=== PATIENT | male | born 1960 | race African-American/Black ===

== ENCOUNTER → 2024-04-03 08:44 | Outpatient (BNVA) | payer OTHER, MEDICAID, SELFPAY | PROVIDERS: Visit Provider Nurse Practitioner Family ==

== ENCOUNTER 2024-09-05 12:21 | Outpatient (AMB) | payer OTHER, SELFPAY ==
--- NOTE | 2024-09-05 12:24 | A.OFFPC_ITS ---
Vital Signs 09/05/24 12:32 09/05/24 13:25 Height 5 ft 8.5 in Weight 200 lb BMI 30.0 BP 165/90 H 136/100 H Blood Pressure Location Rt brachial Rt brachial Position Sitting Sitting Respiration 16 Pulse 74 76 Pulse Source Pulse Oximeter Auscultation Temp 97.8 F Temp Source Oral Pulse Oximetry (%) 98 Oxygen Delivery Method Room Air Intake Visit Reasons: est care Intake Note: patient here as new patient to [facility] Supervisor [employer] Required: No Accompanied by: Other Relationship Allergies No Known Allergies Allergy (Verified 09/05/24 12:50) Medication List - Last Reviewed 09/05/24 by Shruthi Brown MA amlodipine 5 mg PO DAILY ferrous sulfate mg PO DAILY lisinopril 20 mg PO DAILY metformin 500 mg one-half orally 2 times a day; rosuvastatin 30 mg PO DAILY Tobacco use date assessed: 09/05/24 Fall risk assessment: No Falls in past year Last assessed Fall Risk: 09/05/24 Dental Screening Dental Screen Date: 09/05/24 Did you have a dental visit in the last 12 months?: No Did you have a dental problem in the last 6 months where you did not have access to dental care?: No Was dental information given to patient?: Patient has dentist HPI HPI Comments History of Present Illness Details 64-year-old male, accompanied by his car etaker who is also his older cousin, presents to [facility]. He lives with his administration assistant. He admits to taking his medications as prescribed without adverse reactions. [facility] [place] [facility] office visit - 03/2024 CPE/labs - 6 months ago. Record not available. He will request his old record for his PCP to review Acute issue(s) - HTN: He is on amlodipine 5 mg daily a nd lisinopril 20 mg daily - HLD: He is on rosuvastatin 30 mg nehemiah y - Type 2 diabetes: He is on metformin 7 50 mg twice daily. He notes that his last A1c was possibly 6 months ago - Microcytic anemia: He is on ferrous s ulfate 325 mg daily Past Medical History - Type 2 diabetes - Hypertension - Hperlipidemia - Microcytic anemia - Myopia - PTSD and other unknown psychiatric sanket gnoses. He is not currently on psychotropic medications. He was treated by psychiatrist at the [facility]. Psychiatric record not available. He will obtain record for his PCP to review. Surgical History - None Family History - Mom: lung cancer ( of lung cancer. she was a smoker) Social History - Nonsmoker. Does not vape. Does not dri nk alcohol. Denies recreational drug use - Has been making healthy dietary choice s; however, he consumes significant amount of salt. Active but does not exercise. Generally sleep well Health maintenance - Last eye exam was over a year ago. Re ferred to Ophthalmology for routine eye care - Last dental visit was over 40 years ag o; encouraged to schedule an appointment with his dentist for routine dental care. - Last tetanus vaccine was more than 10 years ago; will receive tetanus vaccine at next visit - He notes that his up-to-date on the fl u vaccine - Last colonoscopy was 2022 or 2023 with [facility] or [facility] : He will research his record and notified his PCP to update as needed [facility] Medical History (Updated 09/05/24 @ 14:16 by Christine Ferguson CNP) Acute posttraumatic stress disorder following combat Memory loss Diabetes High cholesterol Family History (Updated 09/05/24 @ 12:58 by Shruthi Brown MA) Mother Lung cancer Social History Housing: House Patient Tobacco Use Status: Never used Tobacco e-Cigarette/Vaping Use: Never Used service: Yes Current occupational exposures/hazards: No Cognitive needs: No Hearing needs: No Vision needs: Yes Questionnaire PHQ-9 Over the last 2 weeks, how often have you been bothered by any of the following problems? 1. Little interest or pleasure in doing things: not at all 2. Feeling down, depressed, or hopeless: not at all 3. Trouble falling or staying asleep, or sleeping too much: not at all 4. Feeling tired or having little energy: not at all 5. Poor appetite or overeating: not at all 6. Feeling bad about yourself - or that you are a failure or have let yourself or your family down: not at all 7. Trouble concentrating on things, such as reading the newspaper or watching television: not at all 8. Moving or speaking so slowly that other people could have noticed. Or the opposite - being so fidgety or restless that you have been moving around a lot more than usual: not at all 9. Thoughts that you would be better off or of hurting yourself in some way: not at all Total score: 0 Depression Screening Interpretation: Negative Depression Screening Done: Yes 66319 - PHQ-9 Billing: Yes Source: Developed by Drs. Brian Paez, Favian Velasco and colleagues, with an educational [place] from [employer]. Thrive Questionnaire Date Thrive assessed: 09/05/24 I am a: Parent/Caregiver What is your living situation today?: I have a steady place to live Within the past 12 months, did the food you bought not last and you didn't have the money to get more?: Never true Within the past 12 months, did you worry whether your food would run out before you got money to buy more?: Never true Do you have trouble paying for medicines?: No Do you have trouble getting transportation to medical appointments?: No Do you have trouble paying your heating and electricity bill?: No Do you have trouble taking care of your child, family member or friend?: No Do you have trouble with day-to-day activities such as bathing, preparing meals, shopping, managing finances, etc.?: No Are you currently unemployed and looking for a job?: No Are you interested in more education?: No Please select the resources that you would like help with: None Currently or been in a relationship where the following occur: No concerns reported THRIVE Score: 0 AUDIT C Alcohol Use Questionnaire (AUDIT-C) 1. How often do you have a drink containing alcohol?: Never Total Score: 0 SARI-7 AMB Questionnaire SARI-7 Date SARI - 7 assessed: 09/05/24 Feeling nervous, anxious, or on edge: 0 = Not at all Not being able to stop or control worryin = Not at all Worrying too much about different things: 0 = Not at all Trouble relaxin = Not at all Being so restless that it is hard to sit still: 0 = Not at all Becoming easily annoyed or irritable: 0 = Not at all Feeling afraid as if something awful might happen: 0 = Not at all Total SARI-7 score (0-4 normal; 5-9 mild; 10-14 moderate; 15-21 severe): 0 Source: Developed by Letitia Garcia Kurt Kroenke and colleagues, with an educational alex[place]ria from [employer]. SARI-7 Assessment Billing SARI-7 Assessment Tool: SARI-7 Assessment 25556 Review of Systems Const Details: Const Denies chills, Denies fatigue, Denies fever(s), Denies headache(s) and Denies weakness ENT Denies dizziness and Denies headache(s) Card Denies chest pain, Denies lightheadedness, Denies dyspnea and Denies other (Palpitations) Resp Denies cough, Denies dyspnea, Denies wheezing and Denies other ( shortness of breath) GI Denies abdominal pain, Denies melena, Denies hematochezia, Denies change in bowel habits, Denies dyspepsia and Denies nausea Denies hematuria and Denies dysuria Musc Denies abnormal gait, Denies myalgias, Denies arthralgias, Denies numbness and Denies tingling Skin/Breast Denies rash, Denies unusual bruising and Denies wounds Neuro Denies abnormal gait, Denies dizziness, Denies headache(s), Denies memory loss, Denies numbness, Denies Sensory deficit (Neuro), Denies tingling and Denies weakness Psych Denies anxiety, Denies depression, Denies memory loss Endo Denies cold intolerance, Denies fatigue, Denies heat intolerance, Denies polydipsia and Denies polyuria Aller/Immun Denies wheezing Physical exam (Primary Care) Vital Signs: Last Vital Signs Temp 97.8 F 09/05/24 12:32 Pulse 76 09/05/24 13:25 Resp 16 09/05/24 12:32 BP 136/100 H 09/05/24 13:25 Pulse Ox 98 09/05/24 12:32 Oxygen Delivery Method Room Air 09/05/24 12:32 BMI result Body Mass Index 30.0 Tobacco/Smoking Status: Tobacco use Status Tobacco use date assessed 09/05/24 09/05/24 12:40 Patient Tobacco Use Status Never used Tobacco 09/05/24 12:40 e-Cigarette/Vaping Use Never Used 09/05/24 12:40 PHQ-9: PHQ-9 Score PHQ-9: Total score 0 09/05/24 12:54 Depression Screening Interpretation: Negative Thrive Assessment: Date of Thrive Assessment Date Thrive assessed 03/07/25 03/07/25 12:40 Currently or been in a relationship where the following occur: No concerns reported Const Other: General: no acute distress and well developed Nutritional Appearance: well nourished Orientation/consciousness: patient oriented x3 [facility] Head: Yes normocephalic and Yes atraumatic Eyes General: appearance normal, both eyes and all related structures Pupils: Equal, round and reactive pupils present EOM: EOMs intact bilaterally Resp Effort & Inspection: normal respiratory effort Auscultation: clear to auscultation bilaterally Cardio Rate: regular rate Rhythm: regular rhythm Heart sounds: S1 normal heart sound present, S2 normal heart sound present, no gallops, no murmurs and no rubs GI Palpation (GI): No Abdominal aortic bruit present, Soft to palpation, nontender, No hepatosplenomegaly present and No Rebound tenderness present Auscultation: normal bowel sounds General: Yes no CVA tenderness Back/Spine/Pelvis Back: no CVA tenderness Cervical Spine: cervical ROM normal and No Cervical spine tenderness Thoracic/Lumbar Spine: thoraco-lumbar ROM normal, No pain with thoraco-lumbar ROM, No thoracic spinal tenderness and No lumbar spinal tenderness Extrem General: Yes normal to inspection, No edema and No calf tenderness Skin General: warm and dry. Normal skin color. Normal skin turgor. Very dry skin of the palms of both hands. Lesions: no lesions Rashes: no rashes Trauma: no lacerations or abrasions Wounds: no wounds Nails: Dark-brown, thickened nails of the left hand in both feet, consistent with onychomycosis Neuro General: patient oriented x3, gait normal and no focal neuro deficit Cranial nerves: Yes Equal, round and reactive pupils present Cognition (Neuro): normal cognition Gait exam (Neuro): Normal gait present Sensory Exam: No Sensory deficit (Neuro) Psych Appearance: grossly normal Affect: normal affect Attitude: cooperative Thought process: Normal thought process present Results AMB Hemoglobin A1c AMB Hemoglobin A1c 6.6 % Last Edit by Shruthi Brown MA on 09/05/24 13:47 Results Reviewed Results Reviewed: Laboratory Last Values Hgb A1c (Clinic) 6.6 % (4.0-6.0) H 09/05/24 12:57 Coding Level of Care Code New Pt Level 5 (80492) New Pt Prev Care 40-64y(69045) Diagnoses Hypertension I10 Type 2 diabetes mellitus E11.9 Hyperlipidemia E78.5 PTSD (post-traumatic stress disorder) F43.10 Onychomycosis B35.1 Dry skin L85.3 Myopia H52.10 Microcytic anemia D50.9 Laboratory tests ordered as part of a complete physical exam (CPE) Z00.00 Additional Codes SARI-7 Assessment Billing - SARI-7 Assessment Tool: SARI-7 Assessment 94806 ([id number]) PHQ-9 - 42856 - PHQ-9 Billing: Yes ([id number]) Comment 50 minute with patient Assessment & Plan Assessment & Plan (1) Hypertension: Code(s): I10 - Essential (primary) hypertension Category: Medical Plan: Resting blood pressure is 136/100, above goal of less than 130/80. He has been consuming significant amount of salt. Low-sodium diet and routine exercise encouraged. Follow-up in 2 weeks or sooner with symptoms or concerns. (2) Type 2 diabetes mellitus: Code(s): E11.9 - Type 2 diabetes mellitus without complications Category: Medical Plan: A1c today 6.6%, within goal of less than 7.0%. Continue current treatment regimen. ADA diet and routine exercise encouraged. Will recheck A1c in 3 months. Verbalized understanding and agreed with treatment plan. (3) Hyperlipidemia: Code(s): E78.5 - Hyperlipidemia, unspecified Category: Medical Plan: Continue current treatment regimen. Advised to limit foods high in saturated fat and avoid foods high in trans fat. Routine exercise encouraged. Will check lipid panel and make changes as needed. (4) PTSD (post-traumatic stress disorder): Code(s): F43.10 - Post-traumatic stress disorder, unspecified Category: Medical Plan: PTSD and other unknown psychiatric diagnoses. He is not on psychotropic medications. He was treated by psychiatrist at the [facility]. Psychiatric record not currently available. He will obtain record for his PCP to review. No anxiety or depressive symptoms. Routine exercise encouraged. Follow-up with symptoms or concerns. Verbalized understanding and agreed with the plan. (5) Onychomycosis: Code(s): B35.1 - Tinea unguium Category: Medical Plan: Dark-brown, thickened nails of the left hand in both feet, consistent with onychomycosis. He wants to treat fungal infection of his fingernails and toenails. Will check liver function and will treat with terbinafine if normal. Verbalized understanding and agreed with the plan. (6) Dry skin: Code(s): L85.3 - Xerosis cutis Category: Medical Plan: Very dry and cracked skin to the palm of both hands. He notes that the dry and cracked skin of his palms resulted from painting; he does a lot of indoor painting. Encouraged to apply moisturizing lotion such as Cetaphil or Lubriderm to dry and cracked skin of his hands as needed. Follow-up as needed. May referred to dermatology. Verbalized understanding and agreed with the plan. (7) Myopia: Code(s): H52.10 - Myopia, unspecified eye Category: Medical Plan: Last eye exam was over a year ago. Referred to Ophthalmology for routine eye care. (8) Microcytic anemia: Code(s): D50.9 - Iron deficiency anemia, unspecified Category: Medical Plan: On ferrous sulfate 325 mg daily. Will check iron studies and vitamin B12/folate level and make changes as needed. (9) Laboratory tests ordered as part of a complete physical exam (CPE): Code(s): Z00.00 - Encounter for general adult medical examination without abnormal findings Category: Medical Plan: Fasting labs ordered as part of a complete physical exam. Advised to fast for at least 10 hours before getting labs drawn. May drink water Verbalized understanding and agreed with treatment plan. Plan Total time spent caring for the patient today was 75 minutes. This includes time spent before the visit reviewing the chart, time spent during the visit, and time spent after the visit on documentation, reviewing laboratory results, diagnostic imaging, medications, performing a medically necessary evaluation, counseling on diagnoses, care coordination, ordering appropriate tests, ordering appropriate medications, review of tests performed by other providers, reporting test results with the patient, communication with other healthcare providers. Orders: Orders Lipid Panel Today Z00.00 - Encounter for general adult medical examination without abnormal findings Microalbumin, Random (w Creat) Today Z00.00 - Encounter for general adult medical examination without abnormal findings PSA, Ultra Sensitive Today Z00.00 - Encounter for general adult medical examination without abnormal findings UA CC w/rflx Micro + Cult Today Z00.00 - Encounter for general adult medical examination without abnormal findings IRON PROFILE Today D50.9 - Iron deficiency anemia, unspecified Ferritin Today D50.9 - Iron deficiency anemia, unspecified AMB Hemoglobin A1c Today Z13.9 - Encounter for screening, unspecified Complete Blood Count Auto Diff Today Z00.00 - Encounter for general adult medical examination without abnormal findings Comprehensive Anthony. Panel Fast Today Z00.00 - Encounter for general adult medical examination without abnormal findings TSH reflex Free T4 Today Z00.00 - Encounter for general adult medical examination without abnormal findings Vitamin D 25-OH Total Today Z00.00 - Encounter for general adult medical examination without abnormal findings Vitamin B12 and Folate Today D50.9 - Iron deficiency anemia, unspecified Referrals Ophthalmology Referral H52.10 - Myopia, unspecified eye
[2024-09-05 12:32] VITALS: BP 165/90; PULSE 74; RESP 16; TEMP 36.6; O2SAT 98
[2024-09-05 13:25] VITALS: BP 136/100; PULSE 76
--- OUTSIDE RECORDS SUMMARY | 2024-09-05 14:04 | XMS_ITS | Continuity of Care Document ---
Author Name [facility] Organization [facility] Care Team Providers Care Tree Surgeon Helper Name Role Phone [facility] Unavailable Unavailable Problems Combined list of problems from Department of Defense and Veterans Affairs facilities. It does not include entries that were removed or entered in error. Problem Status Onset Date Problem Type Date of Resolution Comments Source Anaemia Active Condition Jun 01 Entered By: MIHIR STUBBS Comment: Microcytic Anemia [place] History of colonoscopy Active Condition Jun 07, 2017 Entered By: MIHIR STUBBS Comment: Screen Colonoscopy JUN 17; at [facility]; Dr. Monae 2016 Entered By: MIHIR STUBBS Comment: +Benign Polyposis; +Int. Hemorrhoids;Ia 2021 Entered By: MIHIR STUBBS Comment: Last Screen Colonoscopy 2020: No CRC; repeat? [place] Hypertension Active Condition [facility] Lipidemia Active Condition Jun 01 Entered By: MIHIR STUBBS Comment: LDL WNL APR 23: Re-Start Statin Because is Diabetic [place] Psychotic disorder Active Condition Dec 30, 2018 Entered By: ANILA GARCIA Comment: reviewedApr 05, 2020 Entered By: ANILA GARCIA Comment: reviewedOct 2020 Entered By: ANILA GARCIA Comment: [facility] Type 2 diabetes mellitus Active Condition Sep 02, 2021 Entered By: MIHIR STUBBS Comment: No AUG 23 (eye exam at [place]) [place] Diagnosis: ICD-10-CM E11.9 Type 2 diabetes mellitus without complications Active Diagnosis [place] Diagnosis: ICD-10-CM I10 Essential (primary) hypertension Active Diagnosis [place] Medications Combined list of outpatient medications from Department of Defense and Veterans Affairs facilities.Medications provided include 1) outpatient medications from the last 15 months, and 2) patient-reported medications. Medication Details Route Status Patient Instructions Prescription Expires Prescription Number Last Dispense Date Ordering Provider Order Date Order Qty Source AMLODIPINE BESYLATE 5MG TAB TAKE ONE TABLET BY MOUTH ONCE DAILY FOR HIGH BLOOD PRESSURE FOR BLOOD PRESSURE /HEART, DO NOT TAKE WITH GRAPEFRU IT JUICE ORAL ACTIVE 04/12/2025 [id number] LUIS STUBBS 2023 90 [place] AMLODIPINE BESYLATE 5MG TAB TAKE ONE TABLET BY MOUTH ONCE DAILY FOR HIGH BLOOD PRESSURE FOR BLOOD PRESSURE /HEART, DO NOT TAKE WITH GRAPEFRU IT JUICE ORAL DISCONT INUED 10/15/2024 [id number] LUIS STUBBS 2023 90 [place] CARBAMIDE PEROXIDE 6.5%/GLYCER IN SOLN,OTIC INSTILL 5 DROPS INTO THE AFFECTED EAR(S) ONCE DAILY NEEDED FOR EAR WAX BLOCKAGE AURICU LAR (OTIC) ACTIVE 10/15/2024 [id number] LUIS STUBBS 2023 15 [place] CYCLOBENZAP RINE HCL 10MG TAB TAKE ONE TABLET BY MOUTH TWICE DAILY FOR MUSCLE SPASM ORAL ACTIVE 04/12/2025 [id number] 5 LUIS STUBBS 2023 40 [place] CYCLOBENZAP RINE HCL 10MG TAB TAKE ONE TABLET BY MOUTH TWICE DAILY FOR MUSCLE SPASM ORAL DISCONT INUED 10/15/2024 [id number] LUIS STUBBS 2023 40 [place] DOCUSATE NA 100MG CAP TAKE ONE CAPSULE BY MOUTH ONCE DAILY TO SOFTEN STOOL WITH YOUR IRON PILL ORAL ACTIVE 04/12/2025 [id number] LUIS STUBBS 2023 100 [place] DOCUSATE NA 100MG CAP TAKE ONE CAPSULE BY MOUTH ONCE DAILY TO SOFTEN STOOL WITH YOUR IRON PILL ORAL DISCONT INUED 10/15/2024 [id number] LUIS STUBBS 2023 100 [place] FERROUS SO4 325MG TAB TAKE ONE TABLET BY MOUTH ONCE DAILY TO SUPPLEME NT IRON ORAL ACTIVE 04/12/2025 [id number] 4 LUIS STUBBS 2023 100 [place] FERROUS SO4 325MG TAB TAKE ONE TABLET BY MOUTH ONCE DAILY TO SUPPLEME NT IRON ORAL DISCONT INUED 10/15/2024 [id number] 4 LUIS STUBBS 2023 100 [place] HYDROPHILIC (EQV EUCERIN) CREAM,TOP APPLY A SMALL AMOUNT TOPICALL Y ONCE DAILY TOPICA L ACTIVE 04/12/2025 [id number] STUBBSLUIS POSADA 2023 454 [place] LISINOPRIL 20MG TAB TAKE ONE TABLET BY MOUTH ONCE DAILY TO CONTROL BLOOD PRESSURE ORAL ACTIVE 04/12/2025 [id number] LUIS STUBBS ALBINO 2023 90 [place] LISINOPRIL 20MG TAB TAKE ONE TABLET BY MOUTH ONCE DAILY TO CONTROL BLOOD PRESSURE ORAL DISCONT INUED 10/15/2024 [id number] STUBBSLUIS MAZA 2023 90 [place] METFORMIN HCL 500MG TAB TAKE ONE-HALF TABLET BY MOUTH TWICE DAILY ORAL SUSPEND ED 04/12/2025 [id number] STUBBSLUIS MAZA [facility]23 [facility] METFORMIN HCL 500MG TAB TAKE ONE-HALF TABLET BY MOUTH TWICE DAILY ORAL DISCONT INUED 10/15/2024 [id number] STUBBSLUIS ALBINO 2023 90 [place] ROSUVASTATI N CA 20MG TAB TAKE ONE-HALF TABLET BY MOUTH ONCE DAILY FOR CHOLESTE ROL ORAL ACTIVE 04/12/2025 [id number] 5 STUBBSLUIS MAZA 2023 45 [place] ROSUVASTATI N CA 20MG TAB TAKE ONE-HALF TABLET BY MOUTH ONCE DAILY FOR CHOLESTE ROL ORAL DISCONT INUED 10/15/2024 [id number] STUBBSLUIS MAZA 2023 45 [place] Immunizations Combined list of available immunizations from the Department of Defense and Veterans Affairs facilities. Immunization Series Date Given Administered By Site Reaction Lot Number CVX Code Drug Ocean Forwarder Status Comments Source INFLUENZA, SPLIT VIRUS, TRIVALENT, PF 2023 MIKAEL SERRANO RIGHT DELTO ID [id number] 140 complet ed [facility] INFLUENZA, INJECTABLE, QUADRIVALENT, PRESERVATIVE FREE 2022 SESAR DEGROOT RIGHT DELTO ID [id number] A 150 complet ed [place] TDAP 2021 115 complet ed [place] INFLUENZA, UNSPECIFIED FORMULATION 2020 88 complet ed [facility] COVID-19 (MODERNA), MRNA, LNP-S, PF, 100 MCG/0.5 ML DOSE 2 2020 207 complet ed MOD; [id number]; 1 [place] COVID-19 (MODERNA), MRNA, LNP-S, PF, 100 MCG/0.5 ML DOSE 1 2020 207 complet ed MOD; [id number]; 1 [place] PNEUMOCOCCAL POLYSACCHARID E PPV23 2018 33 complet ed [place] INFLUENZA, INJECTABLE, QUADRIVALENT, PRESERVATIVE FREE 2018 150 complet ed Site: Left Deltoid [place] INFLUENZA, SEASONAL, INJECTABLE 2016 141 complet ed Site: Right Deltoid [place] FLU,3 YRS (HISTORICAL) 2015 88 complet ed Site: Right Deltoid [place] Results Combined list of recent chemistry, hematology and other laboratory results from Department of Defense and Veterans Affairs, ranging from 15 months to all on record, depending upon the facility. Order Name Results Value Reference Range Date Interpretation Specimen Comments Source CALCIUM CALCIUM [MASS/VOLUM E] IN SERUM OR PLASMA 9.0 mg/dL 8.5 - 10.2 04/11 Specimen Type: SERUM No comment entered. Ordering Provider: MIHIR STUBBS Report Released Date/Time: Oct 15, 2023 08:47 AM Reporting Lab: [facility] [employer] [facility] [address] [address] Performing Lab: [facility] [employer] [facility] [address] [address] [place] URIC ACID URATE [MASS/VOLUM E] IN SERUM OR PLASMA 5.7 mg/dL 3.5 - 7.2 04/11 Specimen Type: SERUM No comment entered. Ordering Provider: MIHIR STUBBS Report Released Date/Time: Oct 15, 2023 08:47 AM Reporting Lab: [facility] [employer] [facility] [address] [address] Performing Lab: [facility] [place] [facility] [address] [address] [place] LIVER FUNCTION PROTEIN [MASS/VOLUM E] IN SERUM OR PLASMA 6.9 g/dL 6.0 - 8.3 04/11 Specimen Type: SERUM No comment entered. Ordering Provider: MIHIR STUBBS Report Released Date/Time: Oct 15, 2023 08:47 AM Reporting Lab: [facility] [place] [facility] [address] [address] Performing Lab: [facility] [place] [facility] [address] [address] [place] LIVER FUNCTION ALBUMIN [MASS/VOLUM E] IN SERUM OR PLASMA 3.7 g/dL 3.5 - 5.0 04/11 Specimen Type: SERUM No comment entered. Ordering Provider: MIHIR STUBBS Report Released Date/Time: Oct 15, 2023 08:47 AM Reporting Lab: [facility] [place] [facility] [address] [address] Performing Lab: [facility] [place] [facility] [address] [address] [place] LIVER FUNCTION ALKALINE PHOSPHATASE [ENZYMATIC ACTIVITY/VO LUME] IN SERUM OR PLASMA 65 U/L 40 - 150 04/11 Specimen Type: SERUM No comment entered. Ordering Provider: MIHIR STUBBS Report Released Date/Time: Oct 15, 2023 08:47 AM Reporting Lab: [facility] [place] [facility] [address] [address] Performing Lab: [facility] [place] [facility] [address] [address] [place] LIVER FUNCTION ASPARTATE AMINOTRANSF ERASE [ENZYMATIC ACTIVITY/VO LUME] IN SERUM OR PLASMA 15 U/L 5 - 34 04/11 Specimen Type: SERUM No comment entered. Ordering Provider: MIHIR STUBBS Report Released Date/Time: Oct 15, 2023 08:47 AM Reporting Lab: [facility] [place] [facility] [address] [address] Performing Lab: [facility] [address] [address] [place] LIVER FUNCTION ALANINE AMINOTRANSF ERASE [ENZYMATIC ACTIVITY/VO LUME] IN SERUM OR PLASMA 12 U/L 04/11 Specimen Type: SERUM No comment entered. Ordering Provider: MIHIR STUBBS Report Released Date/Time: Oct 15, 2023 08:47 AM Reporting Lab: [facility] [address] [address] Performing Lab: [facility] [address] [address] [place] LIVER FUNCTION BILIRUBIN.T OTAL [MASS/VOLUM E] IN SERUM OR PLASMA 0.3 mg/dL 0.2 - 1.2 04/11 Specimen Type: SERUM No comment entered. Ordering Provider: MIHIR STUBBS Report Released Date/Time: Oct 15, 2023 08:47 AM Reporting Lab: [facility] [address] [address] Performing Lab: [facility] [address] [address] [place] LIPID PANEL FASTING CHOLESTEROL [MASS/VOLUM E] IN SERUM OR PLASMA 161 mg/dL 04/11 Specimen Type: SERUM No comment entered. Ordering Provider: MIHIR STUBBS Report Released Date/Time: Oct 15, 2023 08:47 AM Reporting Lab: [facility] [address] [address] Performing Lab: [facility] [address] [address] [place] LIPID PANEL FASTING TRIGLYCERID E [MASS/VOLUM E] IN SERUM OR PLASMA 65 mg/dL 0 - 150 04/11 Specimen Type: SERUM No comment entered. Ordering Provider: MIHIR STUBBS Report Released Date/Time: Oct 15, 2023 08:47 AM Reporting Lab: [facility] [address] [address] Performing Lab: [facility] [address] [address] [place] LIPID PANEL FASTING CHOLESTEROL IN LDL [MASS/VOLUM E] IN SERUM OR PLASMA BY CALCULATION 85 mg/dL 0 - 129 04/11 Specimen Type: SERUM No comment entered. Ordering Provider: MIHIR STUBBS Report Released Date/Time: Oct 15, 2023 08:47 AM Reporting Lab: [address] [address] Performing Lab: [address] [address] [place] LIPID PANEL FASTING CHOLESTEROL .TOTAL/CHOL ESTEROL IN HDL [MASS RATIO] IN SERUM OR PLASMA 2.6 04/11 Specimen Type: SERUM No comment entered. Ordering Provider: MIHIR STUBBS Report Released Date/Time: Oct 15, 2023 08:47 AM Reporting Lab: [address] [address] Performing Lab: [address] [address] [place] LIPID PANEL FASTING CHOLESTEROL IN HDL [MASS/VOLUM E] IN SERUM OR PLASMA 63 mg/dL 40 - 60 04/11 H Specimen Type: SERUM No comment entered. Ordering Provider: MIHIR STUBBS Report Released Date/Time: Oct 15, 2023 08:47 AM Reporting Lab: [address] [address] Performing Lab: [address] [address] [place] VITAMIN D (25-OH) 25-HYDROXYV ITAMIN D3 [MASS/VOLUM E] IN SERUM OR PLASMA <13ng/ mL 20 - 50 04/11 L Specimen Type: SERUM No comment entered. Ordering Provider: MIHIR STUBBS Report Released Date/Time: Oct 15, 2023 08:47 AM Reporting Lab: [address] [address] Performing Lab: [address] [address] [place] HEMOGLOBI N A1C PANEL HEMOGLOBIN A1C/HEMOGLO BIN.TOTAL IN BLOOD BY HPLC 6.2 4.0 - 5.6 04/11 H Specimen Type: BLOOD Comment: Values obtained from A1C measurement s can vary. For atypical A1C assays, a reported value of 7.0 could actually be between 6.72 and 7.28 if measured by a reference method. A reported value of 9.0 could actually be between 8.73 and 9.27. Ref: http://www. ngsp.org/[place] Pdata.asp Ordering Provider: MIHIR STUBBS Report Released Date/Time: Oct 15, 2023 08:47 AM Reporting Lab: [facility] [place] [address] [address] Performing Lab: [facility] [place] [address] [address] [place] PSA PROSTATE SPECIFIC AG [MASS/VOLUM E] IN SERUM OR PLASMA 0.73 ng/mL 0.00 - 4.00 04/11 Specimen Type: SERUM No comment entered. Ordering Provider: MIHIR STUBBS Report Released Date/Time: Oct 15, 2023 08:47 AM Reporting Lab: [facility] [place] [address] [address] Performing Lab: [facility] [place] [address] [address] [place] FERRITIN FERRITIN [MASS/VOLUM E] IN SERUM OR PLASMA 138 ng/mL 20 - 300 04/11 Specimen Type: SERUM No comment entered. Ordering Provider: MIHIR STUBBS Report Released Date/Time: Oct 15, 2023 08:47 AM Reporting Lab: [facility] [place] [address] [address] Performing Lab: [facility] [place] [address] [address] [place] TSH THYROTROPIN [UNITS/VOLU ME] IN SERUM OR PLASMA 0.88 u[IU]/ mL 0.35 - 5.00 04/11 Specimen Type: SERUM No comment entered. Ordering Provider: MIHIR STUBBS Report Released Date/Time: Oct 15, 2023 08:47 AM Reporting Lab: [facility] [place] [address] [address] Performing Lab: [facility] [place] [facility] [address] [address] [place] MICROALBU MIN CREATININ E RATIO PANEL MICROALBUMI N/CREATININ E [MASS RATIO] IN URINE 6.9 mg/g 0 - 29.9 04/11 Specimen Type: URINE No comment entered. Ordering Provider: MIHIR STUBBS Report Released Date/Time: Oct 15, 2023 08:47 AM Reporting Lab: [facility] [address] [address] Performing Lab: [facility]ITALUSE[address] [address] [place] MICROALBU MIN CREATININ E RATIO PANEL MICROALBUMI N [MASS/VOLUM E] IN URINE 1.3 mg/dL 04/11 Specimen Type: URINE No comment entered. Ordering Provider: MIHIR STUBBS Report Released Date/Time: Oct 15, 2023 08:47 AM Reporting Lab: [facility] [address] [address] Performing Lab: [facility] [address] [place] MICROALBU MIN CREATININ E RATIO PANEL CREATININE [MASS/VOLUM E] IN URINE 188.08 mg/dL 04/11 Specimen Type: URINE No comment entered. Ordering Provider: MIHIR STUBBS Report Released Date/Time: Oct 15, 2023 08:47 AM Reporting Lab: [facility] [address] [address] Performing Lab: [facility] [address] [place] Vital Signs Combined list of inpatient and outpatient Vital Signs from Department of Defense and Veterans Affairs, ranging from 12 months to all on record, depending upon the facility. Vital Sign Value Date Comments Source SYSTOLIC BLOOD PRESSURE 168 04/11/2024 10:03:05 [place] DIASTOLIC BLOOD PRESSURE 105 04/11/2024 10:03:05 [place] PULSE OXIMETRY 100 04/11/2024 10:03:05 Jose Luis [place] WEIGHT 210 04/11/2024 10:03:05 [place] BMI 29 kg/m2 04/11/2024 10:03:05 [place] HEIGHT 72 04/11/2024 10:03:05 [place] TEMPERATURE 98 04/11/2024 10:03:05 [place] PULSE 59 04/11/2024 10:03:05 [place] RESPIRATION 19 04/11[facility]24 [facility]03[facility] SYSTOLIC BLOOD PRESSURE 143 10/15/2023 08:44:06 [place] DIASTOLIC BLOOD PRESSURE 97 10/15/2023 08:44:06 [place] PULSE OXIMETRY 98 10/15/2023 08:44:06 [place] WEIGHT 233 10/15/2023 08:44:06 [place] BMI 34 kg/m2 10/15/2023 08:44:06 [place] TEMPERATURE 97 10/15/2023 08:44:06 [place] PULSE 74 10/15/2023 08:44:06 [place] RESPIRATION 18 10/15/2023 08:44:06 [place] Encounters Combined list of: 1) Encounters from Department of Veterans Affairs facilities going backup to the last 18 months, not all [place] inpatient encounters are included; 2) Encounters from the Department of Defense facilities going backup to 280 months. Location Location Details Encounter Type Encounter Number Reason For Visit Attending Provider ADM Date DC Date Status Disposition Source [facility] [place] [facility] Outpatient Encounter [id number] 04/18 [place] [facility] [place] [facility] [place] OFFICE O/P EST MOD 30-39 MIN [id number] Diagnos is: ICD-10- CM I10 Essenti al (primar y) hyperte nsmahi MARTINTRA MAZA N [facility]01 [facility] [place] OFF[facility] O/P EST MOD 30-39 MIN [id number] Diagnos is: ICD-10- CM E11.9 Type 2 diabete s mellitu s without complic atluis alfredo MARTINTRA MAZA N 06/01 [facility] [place] [facility] O/P EST MOD 30 MIN [id number] Diagnos is: ICD-10- CM E11.9 Type 2 diabete s mellitu s without complic ations STUBBS,TRA N 10/14 [place] [facility] [place] [facility] Outpatient Encounter [id number] 01/17 [facility] [place] [facility] [place] [facility] Outpatient Encounter [id number] 01/24 [facility] [place] [facility] OFFICE O/P EST MOD 30 MIN [id number] Diagnos is: ICD-10- CM E11.9 Type 2 diabete s mellitu s without complic ations TRA STUBBS N 04/11 [facility] [facility] [facility] [place]AT[place] ADMIN [id number] TRA STUBBS N 04/11 [place] [facility] [place] [facility] Social History Combined list of available smoking, tobacco, and other social history from Department of Defense and Veterans Affairs facilities. Social History Type Response Date Comment Sour e Tobacco smoking status [facility] 04/11/2024 [place] History of tobacco use [place]-TOBACCO NEVER USED 05/01/2023 [place] History of tobacco use [place]-TOBACCO NEVER USED 08/12/2021 [place] History of tobacco use [place]-TOBACCO NEVER USED 07/06/2020 [place] History of tobacco use [place]-TOBACCO FORMER USER 09/13/2018 [place] History of tobacco use QUIT TOBACCO USE > 7 YEARS AGO 04/17/2017 stopped smoking over 25- 30 years ago smoked about 2 packs a day [place] History of tobacco use QUIT TOBACCO USE 1-7 YEARS AGO 06/13/2016 was smoking 2 packs in active duty then cut drastically 1 pack after [place] Plan of Care List of future care activities from Department of Veterans Affairs facilities. Additional future care activities may be listed in the Assessment and Plan section. Date/Time Care Activity Care Activity Detail Facili ty 11/07/2024 AMBULATORY - MEDICINE AMBULATORY - MEDICI NE [place] Advance Directives List of completed, amended, or rescinded Advance Directives on record at Department of Veterans Affairs facilities. An actual copy of the Directive is not included. Date Advance Directive Provider Source 09/15/2016 ADVANCE DIRECTIVE PIPO LEE [facility]
--- OUTSIDE RECORDS SUMMARY | 2024-09-05 14:04 | XMS_ITS | Clinical Summary ---
Author Organization [facility] Address [address] [place] [address] Care Team Providers Care Salon Supervisor Name Role Phone Joanne Rosen [facility] Primary Care Provider [phone] Source Comments PLEASE NOTE, if this patient is a minor, it may be UNLAWFUL to discuss sensitive information that is contained in these records (such as FAMILY PLANNING, MENTAL HEALTH or SUBSTANCE ABUSE) with the minor patient's parent or other person without the patient's specific authorization.[facility] Allergies No known active allergies Medications No known medications Active Problems Problem Noted Date Diagnosed Date Essential hypertension 06/16/2015 Obesity (BMI 30.0-34.9) 06/16/2015 Dental caries 09/17/2014 Family History Medical History Relation Name Comments Cancer Mother Relation Name Status Comments Mother Social History Tobacco Use Types Packs/Day Years Used Date Smoking Tobacco: Some Days Cigarettes Smokeless Tobacco: Never Comments:pt states smokes ci garettes occasionally Alcohol Use Standard Drinks/Week Comments Yes 0 (1 standard drink = 0.6 oz pur e alcohol) ocasional Social Connections Answer Date Recorded Social Connections and Isolation 0 02/23/2019 Financial Resource Strain Answer Date R ecorded Financial Resource Strain 0 2018 Stress Answer Date Recorded Stress 0 02/23/2019 Physical Activity Answer Date Recorded Physical Activity 0 02/23/2019 Food Insecurity Answer Date Recorded Food 0 02/23/2019 Transportation Needs Answer Date Record ed Transportation 0 02/23/2019 Housing Stability Answer Date Recorded Housing 0 02/23/2019 Safety and Environment Answer Date Travon rded Safety 0 02/23/2019 Utilities Answer Date Recorded Utilities 0 02/23/2019 Employment Answer Date Recorded Employment 0 02/23/2019 Sex and Gender Information Value Date Recorded Sex Assigned at Not on file Legal Sex Male 11:35 AM PDT Gender Identity Not on file Sexual Orientation Not on file 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 Not on file Not on file Last Filed Vital Signs Vital Sign Reading Time Taken Comments Blood Pressure 142/100 06/16/2015 3:40 PM EST Pulse 76 06/16/2015 2:45 PM EST Temperature 36.9 ??C (98.5 ??F) 06/16/2015 2:45 PM ES T Respiratory Rate 16 06/16/2015 2:45 PM EST Oxygen Saturation - - Inhaled Oxygen Concentration - - Weight 100.2 kg (221 lb) 06/16/2015 2:45 PM EST Height 176.5 cm (5' 9.5 ) 06/16/2015 2:45 PM EST Body Mass Index 32.17 06/16/2015 2:45 PM EST Plan of Treatment Not on file [facility] Care Teams Salon Supervisor Relationship Specialty Start Date End Date Joanne Rosen FNP [address] [place] [address] PCP - General Family Medicine, BODY PRESSER 06/29/16
== END 2024-09-05 13:49 | disposition home or self-care (01) ==
PROVIDERS: PCP Nurse Practitioner Family; Visit Provider Nurse Practitioner Family
DX: Z00.00 Encounter for general adult medical examination without abnormal findings (principal); I10 Essential (primary) hypertension; E11.69 Type 2 diabetes mellitus with other specified complication; E78.5 Hyperlipidemia, unspecified; F43.10 Post-traumatic stress disorder, unspecified; B35.1 Tinea unguium; L85.3 Xerosis cutis; D50.9 Iron deficiency anemia, unspecified

== ENCOUNTER → 2024-09-05 12:21 | Outpatient (BNVA) | payer OTHER, SELFPAY | PROVIDERS: PCP Nurse Practitioner Family; Visit Provider Nurse Practitioner Family | DX: Z00.00 Encounter for general adult medical examination without abnormal findings (principal); I10 Essential (primary) hypertension; E78.5 Hyperlipidemia, unspecified; E11.9 Type 2 diabetes mellitus without complications; F43.10 Post-traumatic stress disorder, unspecified; B35.1 Tinea unguium; L85.3 Xerosis cutis; H52.10 Myopia, unspecified eye; D50.9 Iron deficiency anemia, unspecified | CPT/HCPCS: 83036; 96127; 99202; 99386 ==

== ENCOUNTER 2024-09-23 08:30 | Outpatient (REF) | payer OTHER, SELFPAY ==
[2024-09-23 11:22] LABS: MANUAL DIFF FLAG NO
[2024-09-23 11:25] LABS: Appearance Urine Clear; Color Urine Yellow; Glucose Urine UA Negative (Negative); Leukocyte Esterase Urine Negative (Negative); Nitrite Urine Negative (Negative); PH 6.5 (5.0-9.0); Urine Blood Negative (Negative); Urine Ketones Negative (Negative); Urine Protein Negative (Neg-Trace)
[2024-09-23 11:28] LABS: Basophils Percent Auto 0.5 % (0-2); Eosinophils Absolute Auto 0.2 X10*3/uL (0.0-0.4); Eosinophils Percent Auto 3.5 % (0-4); Hematocrit 38.6 % (42.0-52.0); Imm Gran Abs Auto 0.01 X10*3/uL (0.00-0.03); Imm Gran Pct Auto 0.2 % (0.0-0.4); Lymphocytes Absolute Auto 1.8 X10*3/uL (1.2-4.9); Lymphocytes Percent Auto 31.4 % (20-40); Mean Corpuscular HGB Conc 31.1 g/dl (31.0-36.0); Mean Corpuscular Hemoglobin 25.7 pg (27.0-33.0); Mean Corpuscular Volume 82.7 fL (80.0-98.0); Mean Platelet Volume 10.1 fL (9.4-12.4); Monocytes Absolute Auto 0.4 X10*3/uL (0.1-1.2); Monocytes Percent Auto 6.9 % (2-11); Neutrophils Absolute Auto 3.3 x10*3/uL (2.0-8.3); Neutrophils Percent Auto 57.5 % (45-73); Platelet Count 225 X10*3/uL (160-400); Red Blood Count 4.67 X10*6/uL (4.60-5.80); Red Cell Distribution Width 14.8 % (11.0-16.0); White Blood Count 5.8 X10*3/uL (4.8-10.8)
[2024-09-23 12:08] LABS: Creatinine Urine 110.69 mg/dL; Microalbum/Creatinine Ratio Ur 7.2 ug/mg cr (<30)
[2024-09-23 12:30] LABS: Alanine Aminotransferase 11 U/L (0-40); Alkaline Phosphatase 63 U/L (39-117); Anion Gap 9 (12-20); Aspartate Amino Transferase 16 U/L (5-37); Bilirubin Total 0.3 mg/dL (0.0-1.0); Blood Urea Nitrogen 11 mg/dL (9-16); Calcium 9.1 mg/dL (8.4-10.2); Carbon Dioxide 27 mmol/L (22-29); Chloride 110 mmol/L (96-108); Cholesterol 123 mg/dL (<200); Estimated Glomerular Filt Rate > 60; Ferritin 304 ng/mL (20-250); Glucose Fasting 121 mg/dL (60-99); HDL Cholesterol 57 mg/dL (>40); Iron 49 mcg/dL (45-160); LDL Cholesterol Calculated 56 mg/dL (<100); Percent Iron Saturation 22 % (15-50); Potassium 3.9 mmol/L (3.3-5.1); Sodium 142 mmol/L (135-145); TSH reflex Free T4 1.15 uIU/mL (0.32-4.0); Total Iron Binding Capacity 219 mcg/dL (228-428); Total Protein 6.8 g/dL (6.5-8.0); Triglycerides 52 mg/dL (<150); Unsaturated Iron Binding 170 ug/dL; Vitamin D 25-OH Total 8.9 ng/mL (>30)
[2024-09-23 12:32] LABS: Vitamin B12 1233 pg/mL (200-900)
[2024-09-28 16:29] LABS: PSA, Ultra Sensitive 0.99 ng/mL
== END 2024-09-23 08:31 | disposition home or self-care (01) ==
LOC: HO.WFDLDS 08:30
PROVIDERS: Visit Provider Nurse Practitioner Family
DX: Z00.00 Encounter for general adult medical examination without abnormal findings (principal); D50.9 Iron deficiency anemia, unspecified
CPT/HCPCS: 36415; 80053; 80061; 81003; 82043; 82306; 82570; 82607; 82728; 82746; 83540; 84153; 84443; 85025

== ENCOUNTER 2024-09-26 12:47 | Outpatient (AMB) | payer OTHER, SELFPAY ==
--- NOTE | 2024-09-26 12:51 | MHC.PC.OV ---
Vital Signs 09/26/24 12:57 09/26/24 13:17 Height 5 ft 8 in Weight 199 lb BMI 30.3 BP 140/86 H 140/90 H Blood Pressure Location Lt brachial Lt brachial Position Sitting Sitting Respiration 16 Pulse 75 Pulse Source Pulse Oximeter Temp 98.2 F Temp Source Oral Pulse Oximetry (%) 100 Oxygen Delivery Method Room Air Intake Visit Reasons: 3 wks HTN, labs review Intake Note: patient here for 3 wks follow up and lab review. Dipper And Drier Required: No Accompanied by: Brother Allergies No Known Allergies Allergy (Verified 09/26/24 13:09) Medication List - Last Reconciled 09/26/24 by Christine Ferguson CNP amlodipine 5 mg PO DAILY cholecalciferol (vitamin D3) 1,250 mcg PO QWEEK 4 weeks ferrous sulfate mg PO DAILY lisinopril 20 mg PO DAILY metformin 500 mg one-half orally 2 times a day; rosuvastatin 30 mg PO DAILY Tobacco use date assessed: 09/26/24 Fall risk assessment: No Falls in past year Last assessed Fall Risk: 09/26/24 Dental Screening Dental Screen Date: 09/26/24 Did you have a dental visit in the last 12 months?: No Did you have a dental problem in the last 6 months where you did not have access to dental care?: No Was dental information given to patient?: Yes HPI HPI Comments History of Present Illness Details 64-year-old male, accompanied by his cousin/caregiver, presents for hypertension and review of recent lab results follow-up. He admits to taking his medications as prescribed without adverse reactions. He has been making healthy dietary choices, including low-sodium diet. He wants treatment for the fungus infection of the nails of his left hand and both feet. No acute symptoms at this time. He notes that [facility] is [facility]. [facility] Medical History (Updated 09/26/24 @ 13:11 by Christine Ferguson CNP) Acute posttraumatic stress disorder following combat Memory loss Diabetes High cholesterol Family History (Updated 09/05/24 @ 12:58 by Shruthi Brown MA) Mother Lung cancer Social History Housing: House Patient Tobacco Use Status: Never used Tobacco e-Cigarette/Vaping Use: Never Used service: Yes Current occupational exposures/hazards: No Cognitive needs: No Hearing needs: No Vision needs: Yes Questionnaire Thrive Questionnaire Date Thrive assessed: 09/05/24 I am a: Parent/Caregiver What is your living situation today?: I have a steady place to live Within the past 12 months, did the food you bought not last and you didn't have the money to get more?: Never true Within the past 12 months, did you worry whether your food would run out before you got money to buy more?: Never true Do you have trouble paying for medicines?: No Do you have trouble getting transportation to medical appointments?: No Do you have trouble paying your heating and electricity bill?: No Do you have trouble taking care of your child, family member or friend?: No Do you have trouble with day-to-day activities such as bathing, preparing meals, shopping, managing finances, etc.?: No Are you currently unemployed and looking for a job?: No Are you interested in more education?: No Please select the resources that you would like help with: None Currently or been in a relationship where the following occur: No concerns reported THRIVE Score: 0 SARI-7 AMB Questionnaire SARI-7 Date SARI - 7 assessed: 09/05/24 Source: Developed by Drs. Brian Paez, Letitia Downey, Favian Harris and colleagues, with an educational [place] from [employer]. Review of Systems Const Details: Const Denies chills, Denies fatigue, Denies fever(s), Denies headache(s) and Denies weakness ENT Denies dizziness and Denies headache(s) Card Denies chest pain, Denies lightheadedness, Denies dyspnea and Denies other (Palpitations) Resp Denies cough, Denies dyspnea, Denies wheezing and Denies other ( shortness of breath) GI Denies abdominal pain, Denies melena, Denies hematochezia, Denies change in bowel habits, Denies dyspepsia and Denies nausea Denies hematuria and Denies dysuria Musc Denies abnormal gait, Denies myalgias, Denies arthralgias, Denies numbness and Denies tingling Skin/Breast Reports as per HPI Neuro Denies abnormal gait, Denies dizziness, Denies headache(s), Denies memory loss, Denies numbness, Denies Sensory deficit (Neuro), Denies tingling and Denies weakness Psych Denies anxiety, Denies depression, Denies memory loss Endo Denies cold intolerance, Denies fatigue, Denies heat intolerance, Denies polydipsia and Denies polyuria Aller/Immun Denies wheezing Physical exam (Primary Care) Vital Signs: Last Vital Signs Temp 98.2 F 09/26/24 12:57 Pulse 75 09/26/24 12:57 Resp 16 09/26/24 12:57 BP 140/86 H 09/26/24 12:57 Pulse Ox 100 09/26/24 12:57 Oxygen Delivery Method Room Air 09/26/24 12:57 BMI result Body Mass Index 30.3 Tobacco/Smoking Status: Tobacco use Status Tobacco use date assessed 09/26/24 09/26/24 13:01 Patient Tobacco Use Status Never used Tobacco 09/26/24 12:53 e-Cigarette/Vaping Use Never Used 09/26/24 12:53 Thrive Assessment: Date of Thrive Assessment Date Thrive assessed 09/05/24 09/26/24 12:53 Currently or been in a relationship where the following occur: No concerns reported Const Other: General: no acute distress and well developed Nutritional Appearance: well nourished Orientation/consciousness: patient oriented x3 HENMT Head: Yes normocephalic and Yes atraumatic Eyes General: appearance normal, both eyes and all related structures Pupils: Equal, round and reactive pupils present EOM: EOMs intact bilaterally Resp Effort & Inspection: normal respiratory effort Auscultation: clear to auscultation bilaterally Cardio Rate: regular rate Rhythm: regular rhythm Heart sounds: S1 normal heart sound present, S2 normal heart sound present, no gallops, no murmurs and no rubs GI Palpation (GI): No Abdominal aortic bruit present, Soft to palpation, nontender, No hepatosplenomegaly present and No Rebound tenderness present Auscultation: normal bowel sounds General: Yes no CVA tenderness Back/Spine/Pelvis Back: no CVA tenderness Cervical Spine: cervical ROM normal and No Cervical spine tenderness Thoracic/Lumbar Spine: thoraco-lumbar ROM normal, No pain with thoraco-lumbar ROM, No thoracic spinal tenderness and No lumbar spinal tenderness Extrem General: Yes normal to inspection, No edema and No calf tenderness Skin General: warm and dry. Normal skin color. Normal skin turgor Lesions: no lesions Rashes: no rashes Trauma: no lacerations or abrasions Wounds: no wounds Nails: Dark-brown, thickened nails of the left hand in both feet, consistent with onychomycosis Neuro General: patient oriented x3, gait normal and no focal neuro deficit Cranial nerves: Yes Equal, round and reactive pupils present Cognition (Neuro): normal cognition Gait exam (Neuro): Normal gait present Sensory Exam: No Sensory deficit (Neuro) Psych Appearance: grossly normal Affect: normal affect Attitude: cooperative Thought process: Normal thought process present Coding Level of Care Code Est Pt Level 4 (26482) Diagnoses Hypertension I10 Hyperlipidemia E78.5 Microcytic anemia D50.9 Onychomycosis B35.1 Vitamin D deficiency E55.9 Assessment & Plan Assessment & Plan (1) Hypertension: Code(s): I10 - Essential (primary) hypertension Category: Medical Plan: Resting blood pressure is 140/90, above goal of less than 130/80. Lisinopril increased to 30 mg daily; advised to take as prescribed. Continue to take amlodipine as prescribed. Low-sodium diet encouraged. Follow-up in 1 month or sooner with worsening or new symptoms. Verbalized understanding and agreed with treatment plan. (2) Hyperlipidemia: Code(s): E78.5 - Hyperlipidemia, unspecified Category: Medical Plan: Recent lipid panel level is normal. Continue to take rosuvastatin as prescribed. Advised to limit foods high in saturated fat and avoid foods high in trans fat. Routine exercise encouraged. Will recheck lipid panel levels in 6 months. Verbalized understanding and agreed with treatment plan. (3) Microcytic anemia: Code(s): D50.9 - Iron deficiency anemia, unspecified Category: Medical Plan: Recent H&H is slightly low, 12.0/38.6, MCV is normal. Iron profile, ferritin level, vitamin B12, and folate levels are within normal limits. He is on ferrous sulfate 325 mg daily; advised to take as prescribed. Will monitor CBC and iron levels with related symptoms or concerns. Verbalized understanding and agreed with the plan. (4) Onychomycosis: Code(s): B35.1 - Tinea unguium Category: Medical Plan: Dark-brown, thickened nails of the left hand in both feet, consistent with onychomycosis. Recent lipid panel is normal. Terbinafine 250 routine mg daily ordered; advised to take as prescribed. Instructed on the risks, benefits, and potential adverse reactions of the medication. Will recheck liver panel in 2 months. Verbalized understanding and agreed with the treatment plan. (5) Vitamin D deficiency: Code(s): E55.9 - Vitamin D deficiency, unspecified Category: Medical Plan: Recent vitamin-D level is significantly low, 8.9. He was prescribed vitamin D3 76570 units weekly a couple of days ago; encouraged to continue to take as prescribed. Will recheck vitamin-D levels in six weeks. Verbalized understanding and agreed with treatment plan. Medications: New lisinopril 30 mg PO DAILY 30 days 30 tabs 3RF terbinafine HCl 250 mg PO DAILY 30 days 30 tabs 2RF
[2024-09-26 12:57] VITALS: BP 140/86; PULSE 75; RESP 16; TEMP 36.8; O2SAT 100; BMI 30.3
[2024-09-26 13:17] VITALS: BP 140/90
== END 2024-09-26 14:48 | disposition home or self-care (01) ==
PROVIDERS: PCP Nurse Practitioner Family; Visit Provider Nurse Practitioner Family
DX: I10 Essential (primary) hypertension (principal); E78.5 Hyperlipidemia, unspecified; D50.9 Iron deficiency anemia, unspecified; B35.1 Tinea unguium; E55.9 Vitamin D deficiency, unspecified

== ENCOUNTER → 2024-09-26 12:47 | Outpatient (BNVA) | payer OTHER, SELFPAY | PROVIDERS: PCP Nurse Practitioner Family; Visit Provider Nurse Practitioner Family | DX: I10 Essential (primary) hypertension (principal); E78.5 Hyperlipidemia, unspecified; D50.9 Iron deficiency anemia, unspecified; B35.1 Tinea unguium; E55.9 Vitamin D deficiency, unspecified | CPT/HCPCS: 99212 ==